=== PATIENT | female | born 1945 | race Two or more races ===

== ENCOUNTER 2019-10-18 23:07 | Inpatient (IN) | payer MEDICARE ==
[~2019-10-18] VITALS: Ht 160 cm; Wt 83.4 kg
[~2019-10-18 23:07] MED LIST: ASPI-231 PO; ATOR20TA50 PO; CLOP75TA28 PO; ISOS30TA4 PO; LISI2.5T47 PO; METO25TA5 PO
[2019-10-19 00:32] LABS: Basophils # (auto) 0 10 ^3/uL (0-0.2); Basophils % (auto) 0.3 % (0.0-2.0); Eosinophils # (auto) 0 10 ^3/uL (0-0.8); Eosinophils % (auto) 0.4 % (0.0-7.0); Hematocrit 35.8 % (36.0-46.0); Hemoglobin 11.8 g/dL (12.2-16.2); Lymphocytes # (auto) 0.5 10 ^3/uL (0.4-5.4); Mean Corpuscular Hemoglobin 29.1 pg (28.0-32.0); Mean Corpuscular Hgb Conc. 33.1 g/dL (32.0-36.0); Monocytes # (auto) 0.4 10 ^3/uL (0-1.3); Monocytes % (auto) 4.8 % (0.0-12.0); Neutrophils # (auto) 6.3 10 ^3/uL (1.6-8.6); Neutrophils % (auto) 87.5 % (37.0-80.0); Platelet Count (auto) 361 10^3/uL (140-450); Red Blood Cells 4.07 10^6/uL (4.0-5.20); Red Cell Distribution Width 14.4 % (11.8-14.3); White Blood Cell 7.3 10^3/uL (4.4-10.8)
[2019-10-19 00:50] LABS: Calcium 8.7 mg/dL (8.5-10.1); Magnesium 2.3 mg/dL (1.6-2.6)
[2019-10-19 00:52] LABS: BUN/Creatinine Ratio 23.9
[2019-10-19 00:57] LABS: Bilirubin, Total 1.1 mg/dL (0.2-1.0); Total Protein 7.3 g/dL (6.4-8.2)
[2019-10-19 01:00] LABS: Potassium 2.8 mmol/L (3.5-5.1)
[2019-10-19 01:05] LABS: INR 1.08 (0.9-1.15); Partial Thromboplastin Time 25.8 sec (23.0-31.2)
[2019-10-19] MEDS ORDERED: POTASSIUM CHL 20MEQ/100ML 100 ML IV ONE (01:15)
[2019-10-19] MEDS ORDERED: POTASSIUM EFFERVESENT TAB 25 MEQ PO ONE (01:15)
[2019-10-19] MEDS ORDERED: IOHEXOL 350 MG/ML 100ML IJ ONE (02:13)
[2019-10-19] MEDS ORDERED: DexAMETHasone SOD PHOS 10MG/1ML VIAL INJ IV ONE (06:30)
[2019-10-19] MEDS ORDERED: DOXYCYCLINE 100MG/250ML 250 ML IV ONE (06:30)
[2019-10-19] MEDS ORDERED: MORPHINE SULF INJ 2 MG/ML SYRINGE 1ML IV PRN (07:30)
[2019-10-19] MEDS ORDERED: TEMAZEPAM 15 MG CAP PO PRN (07:30)
[2019-10-19] MEDS ORDERED: NITROGLYCERIN 0.4 MG SL TAB SL PRN (07:30)
[2019-10-19] MEDS ORDERED: ONDANSETRON HCL 4 MG/2 ML VIAL IV PRN (07:30)
[2019-10-19 08:21] LABS: CRP High Sensitivity 2.91 mg/dL (< 0.3)
[2019-10-19] MEDS: ASPirin 81 mg TAB PO SCH (08:21)
[2019-10-19] MEDS: ISOSORBIDE MONONITRATE ER 60 MG TAB PO SCH (08:21)
[2019-10-19] MEDS: METOPROLOL TARTRATE 25 MG TAB PO SCH ×2 (08:22→20:52)
[2019-10-19] MEDS: CLOPIDOGREL BISULFATE 75 MG TAB PO SCH (08:22)
[2019-10-19] MEDS: LISINOPRIL 5 MG TAB PO SCH (08:22)
[2019-10-19] MEDS: FAMOTIDINE 20 MG TAB PO SCH ×2 (08:22→20:52)
[2019-10-19 08:40] LABS: Basophils # (auto) 0 10 ^3/uL (0-0.2); Basophils % (auto) 0.4 % (0.0-2.0); Eosinophils # (auto) 0 10 ^3/uL (0-0.8); Eosinophils % (auto) 0.4 % (0.0-7.0); Hematocrit 32.9 % (36.0-46.0); Lymphocytes # (auto) 0.8 10 ^3/uL (0.4-5.4); Lymphocytes % (auto) 15.3 % (10.0-50.0); Mean Corpuscular Hemoglobin 29.1 pg (28.0-32.0); Mean Corpuscular Hgb Conc. 33.2 g/dL (32.0-36.0); Mean Corpuscular Volume 87.6 fL (80.0-100.0); Monocytes # (auto) 0.4 10 ^3/uL (0-1.3); Monocytes % (auto) 7.9 % (0.0-12.0); Neutrophils # (auto) 3.8 10 ^3/uL (1.6-8.6); Nucleated Red Blood Cells % 0.1 %; Platelet Count (auto) 326 10^3/uL (140-450); Red Blood Cells 3.76 10^6/uL (4.0-5.20); Red Cell Distribution Width 14.7 % (11.8-14.3)
[2019-10-19 09:11] LABS: Anion Gap 6 (5-15); BUN/Creatinine Ratio 25.4; Blood Urea Nitrogen 18 mg/dL (7-18); Calcium 8.2 mg/dL (8.5-10.1); Carbon Dioxide 23 mmol/L (21-32); Chloride 112 mmol/L (98-107); GFR African American 104 mL/min; GFR Non-African American 86 mL/min; Glucose 132 mg/dL (74-106); Potassium 3.7 mmol/L (3.5-5.1); Sodium 141 mmol/L (136-145)
[2019-10-19 09:14] VITALS: BP 147/82
--- NOTE | 2019-10-19 09:30 | NUR ---
Telemetry admit from [facility] admitted to Telemetry unit after SBAR received. Patient oriented to Erin Sparrow, primary RN, unit, room, bed, and unit policies regarding patient care and visiting hours. Patient now on continuous telemetry monitoring, tele box #5 and telemetry reading on arrival to unit is SR @ 66 BPM. Bed set to lowest position/locked, bedside rail up x2, call light within reach. Instructed patient to call for assistance. Patient verbalized understanding. Will continue to monitor q1hr and prn.
[2019-10-19] MEDS ORDERED: ENOXAPARIN SOD 40 MG/0.4 ML SYRINGE SC SCH (10:00)
[2019-10-19 14:55] VITALS: BP 146/80
--- NOTE | 2019-10-19 15:25 | NUR ---
Patient taken to vehicle via wheelchair with all personal belongings, accompanied by staff and family member. No distress noted at time of departure. Addendum: 10/19/19 at 1546 by Erin Sparrow RN WRONG PATIENT
[2019-10-19 16:19] VITALS: BP 167/88
[2019-10-19] MEDS: DOXYCYCLINE 100MG/250ML 250 ML IV SCH (18:18)
[2019-10-19 19:40] VITALS: BP 155/98
--- NOTE | 2019-10-19 20:00 | NUR ---
Hospitalist Paged Re: Headache Hospitalist paged regarding headache. Patient is complaining of a 5/10 headache and is requesting Tylenol PO. No PRN pain medications ordered at this time. Awaiting call back.
--- NOTE | 2019-10-19 20:31 | NUR ---
Hospitalist Returned Call RE: Headache Notified CASSIDY Mcintosh that patient is complaining of a 5/10 headache and is requesting Tylenol. Orders received for Tylenol 500mg PO every 6 hours for mild pain received. Order read back and verified. Will carry out order as received.
--- NOTE | 2019-10-19 20:40 | NUR ---
Home Medications Patient reported to this RN that she came to the hospital with a bag of home medications. Per patient she states she might have left her bag of home medications down in the tent. This RN called ER and spoke with Nathan. Per Nathan no bag of home medications was found in the tent. This RN notified patient and per patient she will call her family tomorrow morning to follow up and see if her family took the bag of home medications home.
[2019-10-19] MEDS: ACETAMINOPHEN 500 MG TAB PO PRN (20:50)
[2019-10-19] MEDS: ENOXAPARIN SOD 40 MG/0.4 ML SYRINGE SC SCH (20:52)
[2019-10-19] MEDS: ATORVASTATIN 20 MG TAB PO SCH (20:52)
--- NOTE | 2019-10-19 21:57 | NUR ---
Hospitalist Paged RE: High Blood Pressure Hospitalist paged regarding high blood pressure. Blood pressure reassessment 193/83, HR: 73. Patient has already been medicated with scheduled Lopressor. No PRN blood pressure medications ordered. Awaiting call back.
--- NOTE | 2019-10-19 22:50 | NUR ---
Hospitalist Returned Call RE: High Blood Pressure Notified CASSIDY Mcintosh that patient's reassessment blood pressure after administrating scheduled Lopressor 25mg PO is 193/83 and heart rate 73. Orders received for hydralazine 10mg IV x1. Order read back and verified. Will carry out order as received.
[2019-10-19 23:00] VITALS: BP 154/75
[2019-10-19] MEDS ORDERED: hydrALAZINE HCL 20 MG/ML VL IV ONE (23:00)
[2019-10-20] MEDS: ACETAMINOPHEN 500 MG TAB PO PRN (00:23)
[2019-10-20 05:11] VITALS: BP 163/95
[2019-10-20] MEDS: DOXYCYCLINE 100MG/250ML 250 ML IV SCH ×2 (06:04→18:45)
--- NOTE | 2019-10-20 06:13 | NUR ---
Spoke with Hospitalist RE: High Blood Pressure Notified CASSIDY Mcintosh of patient's high blood pressure 195/52 and heart rate 77. Per CASSIDY Mcintosh okay to give scheduled 10:00 blood pressure medications at this time. Orders read back and verified. Will carry out orders as received.
[2019-10-20] MEDS: LISINOPRIL 5 MG TAB PO SCH (06:20)
[2019-10-20] MEDS: ISOSORBIDE MONONITRATE ER 60 MG TAB PO SCH (06:21)
[2019-10-20] MEDS: METOPROLOL TARTRATE 25 MG TAB PO SCH ×2 (06:21→20:53)
[2019-10-20 06:26] LABS: Basophils # (auto) 0 10 ^3/uL (0-0.2); Basophils % (auto) 0.3 % (0.0-2.0); Eosinophils # (auto) 0 10 ^3/uL (0-0.8); Eosinophils % (auto) 0.7 % (0.0-7.0); Hematocrit 34.2 % (36.0-46.0); Hemoglobin 11.5 g/dL (12.2-16.2); Lymphocytes # (auto) 0.9 10 ^3/uL (0.4-5.4); Mean Corpuscular Hemoglobin 29.1 pg (28.0-32.0); Mean Corpuscular Hgb Conc. 33.7 g/dL (32.0-36.0); Mean Corpuscular Volume 86.4 fL (80.0-100.0); Monocytes # (auto) 0.4 10 ^3/uL (0-1.3); Monocytes % (auto) 6.3 % (0.0-12.0); Neutrophils # (auto) 4.6 10 ^3/uL (1.6-8.6); Neutrophils % (auto) 77.7 % (37.0-80.0); Platelet Count (auto) 384 10^3/uL (140-450); Red Blood Cells 3.96 10^6/uL (4.0-5.20); Red Cell Distribution Width 14.2 % (11.8-14.3); White Blood Cell 5.9 10^3/uL (4.4-10.8)
[2019-10-20 06:33] LABS: BUN/Creatinine Ratio 22.4
--- NOTE | 2019-10-20 07:30 | NUR ---
OPENING NOTE ASSUMED CARE OF PT. ALERT AND ORIENTED. NO S/S OF SOB/DISTRESS. BED SET TO LOWEST POSITION/LOCKED. BEDSIDE RAILS UP X2. CALL LIGHT WITHIN REACH. INSTRUCTED PT TO CALL FOR ASSISTANCE. UPDATE ON POC. PT VERBALIZED UNDERSTANDING. WILL CONTINUE TO MONITOR Q1HR AND PRN.
[2019-10-20 08:48] VITALS: BP 162/76
[2019-10-20] MEDS ORDERED: POTASSIUM CHL 20 Meq TABLET PO ONE (09:00)
[2019-10-20] MEDS: FAMOTIDINE 20 MG TAB PO SCH ×2 (09:23→20:53)
[2019-10-20] MEDS: ASPirin 81 mg TAB PO SCH (09:23)
[2019-10-20] MEDS: ENOXAPARIN SOD 40 MG/0.4 ML SYRINGE SC SCH ×2 (09:24→20:54)
[2019-10-20] MEDS: CLOPIDOGREL BISULFATE 75 MG TAB PO SCH (09:24)
[2019-10-20] MEDS ORDERED: METOPROLOL TARTRATE 50 MG TAB PO ONE (11:45)
[2019-10-20] MEDS ORDERED: LISINOPRIL 10 MG TAB PO ONE (11:45)
[2019-10-20 13:00] VITALS: BP 180/92
[2019-10-20] MEDS: LISINOPRIL 20 MG TAB PO SCH ×2 (13:48→20:53)
[2019-10-20 16:56] VITALS: BP 153/91
[2019-10-20] MEDS: ATORVASTATIN 20 MG TAB PO SCH (20:52)
[2019-10-20 22:00] VITALS: BP 188/95
[2019-10-20] MEDS: hydrALAZINE HCL 20 MG/ML VL IV PRN (23:15)
[2019-10-20 23:30] VITALS: BP 117/50
[2019-10-21 05:09] VITALS: BP 157/77
[2019-10-21] MEDS: hydrALAZINE HCL 20 MG/ML VL IV PRN (05:17)
--- NOTE | 2019-10-21 06:08 | NUR ---
Respiratory note: POX CHECK, PT WAS AWAKE COMPLAINING OF CHEST PAIN, NO RESP DISTRESS, RN AT BEDSIDE. HR 96, RR 16, SPO2 95% ON ROOM AIR.
[2019-10-21 06:33] VITALS: BP 106/49
[2019-10-21 06:37] LABS: Basophils # (auto) 0 10 ^3/uL (0-0.2); Basophils % (auto) 0.2 % (0.0-2.0); Eosinophils # (auto) 0 10 ^3/uL (0-0.8); Lymphocytes # (auto) 0.8 10 ^3/uL (0.4-5.4); Monocytes # (auto) 0.5 10 ^3/uL (0-1.3); Neutrophils # (auto) 6.5 10 ^3/uL (1.6-8.6)
[2019-10-21 06:40] LABS: Eosinophils % (auto) 0.4 % (0.0-7.0); Hematocrit 36.4 % (36.0-46.0); Hemoglobin 12.4 g/dL (12.2-16.2); Lymphocytes % (auto) 10.1 % (10.0-50.0); Mean Corpuscular Hemoglobin 29.6 pg (28.0-32.0); Mean Corpuscular Hgb Conc. 34.1 g/dL (32.0-36.0); Mean Corpuscular Volume 86.8 fL (80.0-100.0); Monocytes % (auto) 6.2 % (0.0-12.0); Neutrophils % (auto) 83.1 % (37.0-80.0); Red Cell Distribution Width 13.9 % (11.8-14.3); White Blood Cell 7.9 10^3/uL (4.4-10.8)
--- NOTE | 2019-10-21 06:40 | NUR ---
IV Insertion IV access obtained, via clean sterile technique by inserting 22 gauge catheter at left hand after 1 attempt. IV secured properly. No trauma to site. Patient tolerated well.
[2019-10-21 06:43] LABS: Platelet Count (auto) 473 10^3/uL (140-450)
[2019-10-21] MEDS: DOXYCYCLINE 100MG/250ML 250 ML IV SCH (06:57)
[2019-10-21 07:01] LABS: Potassium 3.6 mmol/L (3.5-5.1)
[2019-10-21 07:08] LABS: Albumin 3.2 g/dL (3.4-5.0); BUN/Creatinine Ratio 19.5; Bilirubin, Total 0.9 mg/dL (0.2-1.0); Calcium 9.3 mg/dL (8.5-10.1); Total Protein 7.4 g/dL (6.4-8.2)
[2019-10-21 09:00] VITALS: BP 142/73
[2019-10-21] MEDS: ASPirin 81 mg TAB PO SCH (09:58)
[2019-10-21] MEDS: ISOSORBIDE MONONITRATE ER 60 MG TAB PO SCH (09:59)
[2019-10-21] MEDS: METOPROLOL TARTRATE 25 MG TAB PO SCH (09:59)
[2019-10-21] MEDS: ENOXAPARIN SOD 40 MG/0.4 ML SYRINGE SC SCH (10:00)
[2019-10-21] MEDS ORDERED: LISINOPRIL 5 MG TAB PO SCH (10:00)
[2019-10-21] MEDS: FAMOTIDINE 20 MG TAB PO SCH (10:00)
[2019-10-21] MEDS ORDERED: amLODIPine BESYLATE 5 MG TAB PO SCH (10:00)
[2019-10-21] MEDS: CLOPIDOGREL BISULFATE 75 MG TAB PO SCH (10:00)
[2019-10-21] MEDS: LISINOPRIL 20 MG TAB PO SCH (10:00)
--- NOTE | 2019-10-21 12:57 | NUR ---
Opening Shift Note Assumed care of patient, awake and alert. No S/S of distress/SOB or pain. Instructed on POC and to call for assist PRN, will continue to monitor for changes Q1hr and PRN. Fall precautions in place per safety protocol.
--- NOTE | 2019-10-21 12:57 | NUR ---
Hospitalist MD Morris at bedside, aware of patient status. New orders for discharge received, will carry out new orders and cont to monitor patient.
[2019-10-21 13:00] VITALS: BP 155/79
[2019-10-21] MEDS ORDERED: LISI-648 PO (13:14)
[2019-10-21] MEDS ORDERED: MET50T PO (13:14)
[2019-10-21] MEDS ORDERED: DOXY-286 PO (13:14)
[2019-10-21 14:27] VITALS: BP 155/79
[2019-10-21 17:30] VITALS: BP 124/71
--- NOTE | 2019-10-21 17:45 | NUR ---
Discharge instructions given as ordered. Encourage to follow up with PMD as instructed. All questions and concerns addressed. Patient verbalized understanding. Medication reconciliation form completed and copy given to patient. IV removed with catheter intact, pressure dressing applied. Telemetry unit returned to ICU. Patient taken to vehicle via wheelchair with all personal belongings, accompanied by staff. No distress noted at time of departure.
== END 2019-10-21 17:45 | disposition home or self-care (01) | DRG 177 ==
LOC: EDBD 23:07 → ER 23:07 → TELE 23:08 → TELE-EAST 10-19 09:21
PROVIDERS: ADMIT Nurse Practitioner; ATTEND Internal Medicine
DX: U07.1 COVID-19 (principal); J12.89 Other viral pneumonia; J81.1 Chronic pulmonary edema; I48.0 Paroxysmal atrial fibrillation; E66.9 Obesity, unspecified; I10 Essential (primary) hypertension; I25.10 Atherosclerotic heart disease of native coronary artery without angina pectoris; E78.00 Pure hypercholesterolemia, unspecified; M19.90 Unspecified osteoarthritis, unspecified site; F41.9 Anxiety disorder, unspecified; E78.5 Hyperlipidemia, unspecified; I25.2 Old myocardial infarction; Z88.8 Allergy status to other drugs, medicaments and biological substances; Z79.899 Other long term (current) drug therapy; Z79.82 Long term (current) use of aspirin; Z86.73 Personal history of transient ischemic attack (TIA), and cerebral infarction without residual deficits; Z90.49 Acquired absence of other specified parts of digestive tract; Z90.710 Acquired absence of both cervix and uterus; Z68.31 Body mass index [BMI] 31.0-31.9, adult
CPT/HCPCS: 36415; 71045; 71275; 80048; 80053; 82728; 83615; 83735; 83880; 84443; 84484; 85025; 85379; 85610; 85730; 86141; 87040; 87070; 87804; 87880; 93005; 94760; 99291; G0378; J1100; J3480; J3490